=== PATIENT | female | born 1980 | race Caucasian/White ===

== ENCOUNTER → 2023-08-27 13:40 | Outpatient (REF) | payer OTHER, SELFPAY | LOC: WDC 13:40 | PROVIDERS: ATTENDING PHYSICIAN Obstetrics & Gynecology; FAMILY PHYSICIAN Nurse Practitioner Adult Health | DX: R92.8 Other abnormal and inconclusive findings on diagnostic imaging of breast (principal) | CPT/HCPCS: 76642; 77062; 77066 ==

== ENCOUNTER → 2024-05-05 09:20 | Outpatient (REF) | payer BC, SELFPAY | LOC: WDC 09:20 | PROVIDERS: ATTENDING PHYSICIAN Nurse Practitioner Adult Health | DX: N63.15 Unspecified lump in the right breast, overlapping quadrants (principal) | CPT/HCPCS: 76642; 77061; 77065 ==

== ENCOUNTER 2025-01-02 12:54 | Emergency (ER) | payer BC, SELFPAY ==
[2025-01-02 12:58] VITALS: BP 144/83
[2025-01-02 16:00] VITALS: BMI 28.8
--- NOTE | 2025-01-02 16:32 | ED.GENMED ---
History of Present Illness
General
Chief Complaint: Eye Problems
Source: patient
Exam Limitations: none
Time Seen by Provider: 01/02/25 14:37
History of Present Illness
History of Present Illness:
44-year-old female presents with right eye discomfort and photosensitivity over the past 3 weeks. She denies any significant vision abnormality. Typically she does wear contacts but has not worn her contacts in the last 3 weeks. She was initially
seen at the urgent care thought to have a corneal abrasion and started on drops without relief.
Past History
Past History
ED Past Medical History: None
ED Past Surgical History: None
Social History
Personal:
Phy Exam
Physical Exam
Physical Exam:
General: Well-appearing female in no acute respiratory distress
HEENT normal cephalic right eye with scleral injection pupils round reactive to light no hyphema. Examination with slit lamp and fluorescein stain demonstrates stain uptake over the medial aspect of the cornea that is punctate in nature closer look
does show some potential rust at the base of this. Lids were everted. There was no retained foreign body in the lids
Course
Orders/Labs/Results
Orders:
Orders
01/02/25 14:45
Fluorescein Sodium [Ful-Bhavana] 1 mg .ROUTE .STK-MED ONE
Tetracaine HCl [Tetracaine 0.5% Ophthalmic Solution] 1 drop .ROUTE .STK-MED ONE
01/02/25 15:38
Visual Acuity- Treatment ONCE
01/02/25 16:10
Ciprofloxacin HCl [Ciloxan 0.3% Ophthalmic Solution] See Dose Instructions OPHTH NOW STA
01/02/25 16:12
Gentamicin [Genoptic 0.3% Eye Drops] See Dose Instructions OPHTH NOW STA
01/02/25 16:14
Erythromycin (Ilotycin) [Erythromycin 0.5% Ophthalmic Ointment] See Dose Instructions OPHTH NOW STA
Vital Signs
Initial and Last Documented VS:
Initial Vital Signs
Temp Pulse Resp BP Pulse Ox
98.7 F 73 16 144/83 98
01/02/25 12:58 01/02/25 12:58 01/02/25 12:58 01/02/25 12:58 01/02/25 12:58
Last Documented Vital Signs
Temp Pulse Resp BP Pulse Ox
98.7 F 73 16 144/83 98
01/02/25 12:58 01/02/25 12:58 01/02/25 12:58 01/02/25 12:58 01/02/25 12:58
MDM/Problems Addressed
Differential Diagnosis Includes:
Visual acuity 20/20 all around. The rest and foreign bodies were removed with the eye bur. Reinspection provide it improved assessment based on the slit-lamp. Discussed with ophthalmology will start gentamicin drops for the day and erythromycin
ointment at night. Patient will follow-up close ophthalmology
*Pulse Oximetry
SaO2: 98
Oxygen Mode of Delivery: Room air
Patient hypoxic: no
*Critical Care Note
Total Time (30-74mins, 75-104mins- exclusive of procedures): Not Applicable
ED Attending Note
-
Portions of this chart may have been created with voice recognition software.� Occasional wrong word or��sound alike� substitutions may have occurred due to the inherent limitations of voice recognition software.
Discharge Plan
Departure
Patient Disposition: Home (Routine Discharge)
Date of Disposition: 01/02/25
Time of Disposition: 16:34
Patient with high blood pressure during this ER visit?: No
Discharge Problem:
Foreign body in eye
Instructions: Foreign Body in Eye (DC)
Prescriptions:
No Action
citalopram 10 MG tablet
10 mg PO DAILY
norgestimate-ethinyl estradiol [Ortho Tri-Cyclen (28)] 0.18/0.215/0.25 mg-35 mcg (28) tablet
1 tab PO
hydrocodone-acetaminophen 5 MG/500 MG tablet
1 tab PO Q4HPRN PRN (Reason: pain) Qty: 20 0RF
ondansetron 4 MG tablet,disintegrating
4 mg PO TIDPRN PRN (Reason: nausea) Qty: 20 0RF
prednisone 50 MG tablet
50 mg PO DAILY Qty: 5 0RF
Referrals:
Carmen Bermudez CRNP [Family Provider, General]
Emilei Palomares MD [Active, Ophthalmology]
Activity Restrictions/Additional Instructions:
Use 1 drop every 4 hours for a week and use the ointment before bedtime. Follow-up with ophthalmology for next available appointment. [phone]
Interventions
Interventions:
*Risk Screen - Suicide Last Done: 01/02/25 12:58
*Neglect/Abuse Screening Last Done: 01/02/25 12:58
Discharge Date and Time
Print Language: GAMBIAN
[2025-01-02] MEDS: GENOPTIC 0.3% EYE DROPS 1 DROP OPHTH (16:47)
[2025-01-02] MEDS: ERYTHROMYCIN 0.5% OPHTHALMIC OINTMENT 1 APPLIC OPHTH (16:48)
[2025-01-02 16:53] VITALS: BP 134/68
== END 2025-01-02 16:53 | disposition home or self-care (01) ==
LOC: EMR 12:54
PROVIDERS: EMERGENCY PHYSICIAN Emergency Medicine; FAMILY PHYSICIAN Nurse Practitioner Adult Health
DX: T15.91XA Foreign body on external eye, part unspecified, right eye, initial encounter (principal); X58.XXXA Exposure to other specified factors, initial encounter
CPT/HCPCS: 99283